=== PATIENT | male | born 1990 | race Hispanic/Latino ===

== ENCOUNTER 2017-12-05 13:47 | Emergency (ER) | payer OTHER ==
[2017-12-05 14:22] VITALS: BP 133/85
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
== END 2017-12-05 19:48 | disposition home or self-care (01) ==
LOC: ED 13:47
DX: S16.1XXA Strain of muscle, fascia and tendon at neck level, initial encounter (principal); F17.200 Nicotine dependence, unspecified, uncomplicated; V89.2XXA Person injured in unspecified motor-vehicle accident, traffic, initial encounter; Y93.89 Activity, other specified; Y92.89 Other specified places as the place of occurrence of the external cause; Y99.8 Other external cause status
CPT/HCPCS: 72125; 99283

== ENCOUNTER 2018-10-15 22:45 | Emergency (ER) | payer SELFPAY ==
[2018-10-15 22:54] VITALS: BP 111/82
--- NOTE | 2018-10-16 00:30 | XRay Report ---
PROCEDURE: XR SHOULDER 2+V LT TECHNIQUE: Left shoulder radiographs, internal and external rotation, Y view views. HISTORY: fall with pain and swelling COMPARISONS: None . FINDINGS: Fracture (s) and/or Dislocation(s): None . Joint space(s): Normal . Soft tissues: Normal . Bone mineralization: Normal . Foreign bodies: None . IMPRESSION: Normal Examination . This document is electronically signed by Deepti Ashraf DO., October 15 2018 11:38:19 PM ET
[2018-10-16] MEDS ORDERED: IBUPROFEN PO ONE (01:55)
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
== END 2018-10-16 03:02 | disposition home or self-care (01) ==
LOC: ED 22:45
DX: S40.212A Abrasion of left shoulder, initial encounter (principal); X58.XXXA Exposure to other specified factors, initial encounter; Y93.89 Activity, other specified; Y92.89 Other specified places as the place of occurrence of the external cause; Y99.8 Other external cause status

== ENCOUNTER 2021-03-08 13:28 | Emergency (ER) | payer SELFPAY ==
[2021-03-08 13:32] VITALS: BP 152/98
[2021-03-08] MEDS ORDERED: KETOROLAC 60 MG/2 ML INJ IM ONE (13:52)
[2021-03-08] MEDS ORDERED: predniSONE 20 MG TAB PO ONE (13:52)
[2021-03-08] MEDS ORDERED: HYDROcodone/ACETAMINOPHEN 10-325MG TAB PO ONE (13:52)
--- NOTE | 2021-03-08 14:55 | Cat Scan Report ---
CT LUMBAR SPINE WITHOUT CONTRAST INDICATION: pain with left leg tingling/numbness. TECHNIQUE: Axial CT images of the spine were obtained. Sagittal and coronal reformatted images were produced. Al l CT scans at this location are performed using CT dose reduction for ALARA by means of automated exp osure control. COMPARISON: None available. FINDINGS: ACUTE FRACTURE(S) OR SUBLUXATION: None. SPINAL DEGENERATIVE CHANGES: No significant degenerative changes. PARASPINAL SOFT TISSUES: No soft tissue swelling or other acute abnormalities. ADDITIONAL FINDINGS: No significant additional findings. IMPRESSION: 1. No acute fracture or subluxation in the spine in neutral position. No appreciable significant spin al canal or neural foraminal narrowing by CT. Signer Name: Rashawn Bedoya MD Signed: 03/08/2021 2:50 PM Workstation Name: [id number]
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
== END 2021-03-08 16:56 | disposition home or self-care (01) ==
LOC: ED 13:28
DX: M54.16 Radiculopathy, lumbar region (principal); S39.012A Strain of muscle, fascia and tendon of lower back, initial encounter; F17.200 Nicotine dependence, unspecified, uncomplicated; F10.20 Alcohol dependence, uncomplicated; X58.XXXA Exposure to other specified factors, initial encounter; Y93.89 Activity, other specified; Y92.89 Other specified places as the place of occurrence of the external cause; Y99.8 Other external cause status
CPT/HCPCS: 72131; 96372; 99283; J1885; J7512